=== PATIENT | male | born 1950 | race Hispanic/Latino ===

== ENCOUNTER 2018-09-11 08:08 | Emergency (ER) | payer MEDICARE ==
[2018-09-11 08:38] VITALS: BMI 31.0
--- NOTE | 2018-09-11 09:01 | ED PDOC ---
Arrival/HPI - General Chief Complaint: Fever Time Seen by Provider: 09/11/18 08:19 Historian: Patient - History of Present Illness Narrative History of Present Illness (Text): 09/11/18 09:01 A 68 year old male, presents to the emergency department with a complaint of generalized weakness and fevers. The patient notes that he had a surgery for an aneurysm a few weeks ago and had a catheter placed. He reports that every time he has gotten a catheter placed, he gets a UTI. He has been on medication for a UTI. The patient notes that since the procedure, he has been feeling generalized weakness and has had a fever for the past 2 days. The patient's notes that the patient has been complaining of double vision whenever watching TV. The patient denies chills, headache, dizziness, chest pain, shortness of breath, dyspnea on exertion, cough, abdominal pain, nausea, vomiting, diarrhea, back pain, neck pain, urinary/bowel changes, or any other complaint. Time/Duration: Other (several days) Symptom Course: Unchanged Activities at Onset: Rest, Light Context: Home Past Medical History - Provider Review Nursing Documentation Reviewed: Yes - Tetanus Immunization Tetanus Immunization: Unknown - Cardiac Hx Hypertension: Yes - Pulmonary Other/Comment: H/O SMOKING PK/DAY QUIT - HEENT Other/Comment: TONSILLECTOMY - Musculoskeletal/Rheumatological Hx Falls: No Other/Comment: RIGHT KNEE TORN MENISCUS,INJURY TO RIGHT PINKY(JOB RELATED),S LIPPED DISC 5TH DISC - Gastrointestinal Hx Gall Bladder Disease: Yes (CHOLECYSTECTOMY) - Psychiatric Hx Depression: No Hx Emotional Abuse: No Hx Physical Abuse: No Hx Substance Use: No - Surgical History Hx Cholecystectomy: Yes Hx Open Heart Surgery: Yes (CABG DECEMBER 06) Other/Comment: AAA repair,hernia repair - Anesthesia Hx Anesthesia: Yes Hx Anesthesia Reactions: No Hx Malignant Hyperthermia: No - Suicidal Assessment Feels Threatened In Home Enviroment: No Family/Social History - Physician Review Nursing Documentation Reviewed: Yes Family/Social History: No Known Family HX Smoking Status: Former Smoker Hx Alcohol Use: Yes (OCCASIONALLY) Hx Substance Use: No Hx Substance Use Treatment: Yes (up until heart surgery) Allergies/Home Meds Allergies/Adverse Reactions: Allergies Penicillins Allergy (Verified 09/11/18 08:13) SWELLING Home Medications: Home Meds Medication Instructions Recorded Confirmed Carbidopa/Levodopa 1 each PO QID 09/11/18 09/11/18 [Carbidopa-Levodopa 25-100 Tab] Tamsulosin HCl [Flomax] 0.4 mg PO DAILY 09/11/18 09/11/18 Review of Systems - Physician Review All systems were reviewed & negative as marked: Yes - Review of Systems Constitutional: Fevers, Other (Generalized weakness. ) Respiratory: absent: SOB, Cough Cardiovascular: absent: Chest Pain, SAGASTUME Gastrointestinal: absent: Abdominal Pain, Stool Changes, Diarrhea, Nausea, Vomi ting Genitourinary Male: absent: Urinary Output Changes Musculoskeletal: absent: Back Pain, Neck Pain Neurological: absent: Headache, Dizziness Physical Exam - Physical Exam Narrative Physical Exam (Text): Gen: VS reviewed, alert, well developed, well nourished, nontoxic, mild distress. ENT: normal pharynx. Eye: EOMI, PERRL. Neck: no JVD, supple, no adenopathy. CV: regular rate, regular rhythm, no rubs, no murmur, no gallops, S1, S2, pulses equal and strong. Pulm: no distress, clear to auscultation, no wheeze, no rhonchi, breath sounds equal, no rales. Abd: soft, nontender, no guarding, no rebound, no rigidity, normal bowel sounds. Ext: no edema. Skin: good color, no rash, no cyanosis. Psych: responds appropriately to questions, normal affect. Neuro: oriented x 3, CN2-12 intact grossly, motor intact, sensation intact. Vital Signs Reviewed: Yes Vital Signs Temp Pulse Resp BP Pulse Ox 09/11/18 08:19 97.8 F 83 18 130/80 97 Temperature: Afebrile Blood Pressure: Normal Pulse: Regular Respiratory Rate: Normal Appearance: Positive for: Well-Appearing, Non-Toxic, Comfortable Pain Distress: None Mental Status: Positive for: Alert and Oriented X 3 Medical Decision Making ED Course and Treatment: 09/11/18 09:07 Impression: A 68 year old male presents to the emergency department with a complaint of several day duration generalized weakness and fever for the past 2 days. Plan: -- Chest X-ray -- Urinalysis -- Blood/Urine Culture -- Rapid Flu -- Labs -- IV Fluids -- Reassess and disposition Prior Visits: Notes and results from previous visits were reviewed. Progress Notes: 09/11/18 13:09 patient was treated for clinical pyelo with fever and abnormal UA s/p OR pena catheter during recent surgery. patient feels well and nontoxic appearing, tolerated IV cipro dose in the ED , he states he has responded positively to po abx in the past. patient understands and is agreeable to plan and will return for any new or worsening symptoms. will refer patient to urology as he has recurrent uti's. - Lab Interpretations I have reviewed the lab results: Yes - RAD Interpretation Narrative RAD Interpretations (Text): Chest X-ray Signed By: Guilherme Pastor MD Date Signed: 09/11/2018 0937 IMPRESSION: No active disease. Radiology Orders: 09/11/18 08:51 CHEST PORTABLE [RAD] Stat - Scribe Statement The provider has reviewed the documentation as recorded by the Scribe Sharon Garnett Provider Scribe Attestation: All medical record entries made by the Scribe were at my direction and personally dictated by me. I have reviewed the chart and agree that the record accurately reflects my personal performance of the history, physical exam, medic al decision making, and the department course for this patient. I have also personally directed, reviewed, and agree with the discharge instructions and disposition. Disposition/Present on Arrival - Present on Arrival Any Indicators Present on Arrival: No History of DVT/PE: No History of Uncontrolled Diabetes: No Urinary Catheter: No History of Decub. Ulcer: No History Surgical Site Infection Following: None - Disposition Have Diagnosis and Disposition been Completed?: Yes Diagnosis: UTI (urinary tract infection) Disposition: HOME/ ROUTINE Disposition Time: 13:13 Patient Plan: Discharge Condition: STABLE Discharge Instructions (ExitCare): Urinary Tract Infection, Adult (DC) Additional Instructions: stay well hydrated (water). return for any new or worsening symptoms. consider follow up with a urologist since the urine infections are a recurrent issue. Prescriptions: Ciprofloxacin [Cipro] 500 mg PO BID 10 Days #20 tab Referrals: PCP,NO [Primary Care Provider] - Follow up with primary Katie Rocha MD [Staff Provider] - Follow up with primary [facility] [Outside] - Follow up with primary Forms: [employer] (Eth[place]ian)
[2018-09-11] MEDS ORDERED: Sodium Chloride 0.9% 500 ML IV STA (09:07)
[2018-09-11 09:35] LABS: BASO # 0.01 K/mm3 (0.0-2.0); BASO % 0.2 % (0.0-3.0); EOS % 0.2 % (1.5-5.0); GRAN # 4.71 (1.4-6.5); GRAN % 80.4 % (50.0-68.0); HEMOGLOBIN 12.9 g/dL (14.0-18.0); LYMPH # 0.7 (1.2-3.4); LYMPH % 11.9 % (22.0-35.0); MEAN CELL VOLUME 91.1 fl (80.0-105.0); MEAN PLATELET VOLUME 9.4 fl (7.0-11.0); MONO # 0.4 (0.1-0.6); MONO % 7.3 % (1.0-6.0); RBC 4.16 10^6/uL (3.5-6.1); WHITE BLOOD COUNT 5.9 10^3/uL (4.5-11.0)
--- NOTE | 2018-09-11 09:40 | RAD ---
Date of service: 09/11/2018 HISTORY: fever,pneumonia COMPARISON: 02/14/2013 FINDINGS: LUNGS: No active pulmonary disease. PLEURA: No significant pleural effusion identified, no pneumothorax apparent. CARDIOVASCULAR: No aortic atherosclerotic calcification present. Normal cardiac size. No pulmonary vascular congestion. OSSEOUS STRUCTURES: Sternal wires VISUALIZED UPPER ABDOMEN: Normal. OTHER FINDINGS: None. IMPRESSION: No active disease.
[2018-09-11 09:41] LABS: ALB/GLOB RATIO 1.2 (1.1-1.8); ALBUMIN 3.9 g/dL (3.0-4.8); ALT/SGPT 10 U/L (7-56); AST/SGOT 33 U/L (17-59); BLOOD UREA NITROGEN 24 mg/dL (7-21); CALCIUM 8.9 mg/dL (8.4-10.5); GFR NON-AFRICAN AMERICAN > 60
[2018-09-11 10:30] LABS: URINE BILIRUBIN NEGATIVE (NEGATIVE); URINE BLOOD NEGATIVE (NEGATIVE); URINE GLUCOSE (UA) NEGATIVE (NEGATIVE); URINE LEUKOCYTE ESTERASE MODERATE Leu/uL (NEGATIVE); URINE PROTEIN NEGATIVE mg/dL (<30 mg/dL); URINE UROBILINOGEN 0.2 E.U./dL (<1 E.U./dL)
[2018-09-11 10:34] LABS: URINE COLOR YELLOW (YELLOW)
[2018-09-11 10:35] LABS: URINE APPEARANCE SL CLOUDY (CLEAR)
[2018-09-11 10:37] LABS: URINE BACTERIA FEW /hpf; URINE EPITHELIAL CELLS 0 - 2 /hpf (0-5); URINE RBC 0 - 2 /hpf (0-2); URINE WBC TNTC /hpf (0-6)
[2018-09-11] MEDS ORDERED: Ciprofloxacin 400mg/200ml D5W 400 MG/200 ML BAG IVPB STA (10:45)
[2018-09-11 12:26] VITALS: BP 129/66; PULSE 80; RESP 16; TEMP 99; O2SAT 99
== END 2018-09-11 13:40 | disposition home or self-care (01) ==
LOC: ED 08:08
DX: N39.0 Urinary tract infection, site not specified (principal); I10 Essential (primary) hypertension; Z87.891 Personal history of nicotine dependence
CPT/HCPCS: 71045; 80053; 81001; 82948; 85025; 87040; 87086; 87804; 96365; 99283; J0744; J7040